=== PATIENT | female | born 1990 | race American Indian/Alaskan Native ===

== ENCOUNTER 2019-05-04 03:37 | Emergency (ER) | payer MEDICAID ==
[2019-05-04 04:57] LABS: Bacteria,Urine 1+ /HPF (Negative); Bilirubin,Urine NEG (Negative); Blood,Urine LG (Negative); Color,Urine Yellow (Yellow); Mucus,Urine 3+ /HPF
[2019-05-04 05:05] LABS: HCG Qualitative,Urine Negative (Negative)
[2019-05-04 05:58] VITALS: BP 106/74
[2019-05-04] MEDS ORDERED: LEVAQUIN PO STA (06:17)
--- NOTE | 2019-05-04 06:26 | Emergency Department Report ---
ED Female HPI - General Chief complaint: Back Pain/Injury Stated complaint: LOWER RT BACK PAIN Time Seen by Provider: 05/04/19 06:17 Source: patient Mode of arrival: Ambulatory Limitations: No Limitations - History of Present Illness MD Complaint: dysuria (and flank pain) -: Gradual, Sudden Radiation: R flank Severity: mild Quality: sharp, dull Consistency: constant Improves with: none Worsens with: urination Are you Now?: No Associated Symptoms: dysuria. denies: vaginal discharge, vaginal bleeding, abdominal pain, fever/chills, headaches, loss of appetite, rash, seizure, shortness of breath, syncope, weakness - Related Data Sexually active: No Previous Rx's Medication Instructions Recorded Last Taken Type Famotidine [Pepcid] 20 mg PO BID #40 tablet 09/06/15 Unknown Rx Potassium Chloride [K-Dur] 20 meq PO QDAY #3 tablet 09/06/15 Unknown Rx Vit-Fe Fumar-FA [ 1 tab PO QDAY #90 tablet 09/06/15 Unknown Rx Vitamin] Promethazine [Phenergan TAB] 25 mg PO Q6HR PRN #40 tab 09/06/15 Unknown Rx metroNIDAZOLE 0.75%(NF) [Metrogel 1 applicatio TP QHS #5 tube 09/06/15 Unknown Rx 0.75% TOPICAL] Ciprofloxacin HCl [Ciprofloxacin 500 mg PO Q12HR #28 tab 05/04/19 Unknown Rx TAB] Phenazopyridine [Pyridium] 200 mg PO BID PRN #10 tab 05/04/19 Unknown Rx Allergies Allergy/AdvReac Type Severity Reaction Status Date / Time No Known Allergies Allergy Unverified 07/20/13 08:25 ED Review of Systems ROS: Stated complaint: LOWER RT BACK PAIN Other details as noted in HPI Constitutional: denies: chills, fever Eyes: denies: eye pain, eye discharge, vision change ENT: denies: ear pain, throat pain Respiratory: denies: cough, shortness of breath, wheezing Cardiovascular: denies: chest pain, palpitations Endocrine: no symptoms reported Gastrointestinal: denies: abdominal pain, nausea, diarrhea Genitourinary: dysuria. denies: urgency, discharge, abnormal menses, dyspareunia Musculoskeletal: denies: back pain, joint swelling, arthralgia Skin: denies: rash, lesions Neurological: denies: headache, weakness, paresthesias Psychiatric: denies: anxiety, depression Hematological/Lymphatic: denies: easy bleeding, easy bruising ED Past Medical Hx - Past Medical History Previous Medical History?: Yes Hx Hypertension: No Hx Congestive Heart Failure: No Hx Diabetes: No Hx Deep Vein Thrombosis: No Hx Renal Disease: No Hx Sickle Cell Disease: No Hx Seizures: No Hx Asthma: No Hx COPD: No Hx HIV: No - Surgical History Past Surgical History?: Yes Additional Surgical History: x2, Left tubal ligation - Social History Smoking Status: Current Every Day Smoker Substance Use Type: None - Medications Home Medications: Home Medications Medication Instructions Recorded Confirmed Last Taken Type Famotidine [Pepcid] 20 mg PO BID #40 tablet 09/06/15 Unknown Rx Potassium Chloride [K-Dur] 20 meq PO QDAY #3 tablet 09/06/15 Unknown Rx Vit-Fe Fumar-FA [ 1 tab PO QDAY #90 tablet 09/06/15 Unknown Rx Vitamin] Promethazine [Phenergan TAB] 25 mg PO Q6HR PRN #40 tab 09/06/15 Unknown Rx metroNIDAZOLE 0.75%(NF) [Metrogel 1 applicatio TP QHS #5 tube 09/06/15 Unknown Rx 0.75% TOPICAL] Ciprofloxacin HCl [Ciprofloxacin 500 mg PO Q12HR #28 tab 05/04/19 Unknown Rx TAB] Phenazopyridine [Pyridium] 200 mg PO BID PRN #10 tab 05/04/19 Unknown Rx ED Physical Exam - General Limitations: No Limitations General appearance: alert, in no apparent distress - Head Head exam: Present: atraumatic, normocephalic, normal inspection - Eye Eye exam: Present: normal appearance, PERRL, EOMI. Absent: scleral icterus, conjunctival injection, periorbital swelling, periorbital tenderness Pupils: Present: normal accommodation - ENT ENT exam: Present: normal exam, normal orophraynx, mucous membranes moist, TM's normal bilaterally - Neck Neck exam: Present: normal inspection, full ROM. Absent: meningismus, lymphadenopathy, thyromegaly - Respiratory Respiratory exam: Present: normal lung sounds bilaterally. Absent: respiratory distress, wheezes, rales, rhonchi, chest wall tenderness, accessory muscle use - Cardiovascular Cardiovascular Exam: Present: regular rate, normal rhythm. Absent: systolic murmur, diastolic murmur, rubs, gallop - GI/Abdominal GI/Abdominal exam: Present: soft, normal bowel sounds - Extremities Exam Extremities exam: Present: normal inspection, full ROM, normal capillary refill - Back Exam Back exam: Present: normal inspection, CVA tenderness (R). Absent: muscle spasm, paraspinal tenderness, vertebral tenderness - Neurological Exam Neurological exam: Present: alert, oriented X3, CN II-XII intact, normal gait - Psychiatric Psychiatric exam: Present: normal affect, normal mood. Absent: agitated, anxious, flat affect, manic - Skin Skin exam: Present: warm, dry, intact, normal color. Absent: rash, cyanosis, diaphoretic, petechiae, pallor, ecchymosis ED Course Vital Signs 05/04/19 05/04/19 03:44 05:55 Temperature 98.2 F 98.7 F Pulse Rate 109 H 107 H Respiratory 16 18 Rate Blood Pressure 124/72 Blood Pressure 106/74 [Right] O2 Sat by Pulse 97 99 Oximetry Critical care attestation.: If time is entered above; I have spent that time in minutes in the direct care of this critically ill patient, excluding procedure time. ED Disposition Clinical Impression: UTI (urinary tract infection) Disposition: - TO HOME OR SELFCARE Is pt being admited?: No Does the pt Need Aspirin: No Condition: Stable Instructions: Phenazopyridine (By mouth), Urinary Tract Infection in Women (ED) Referrals: YAS MORALES MD [Primary Care Provider] - 3-5 Days
== END 2019-05-04 06:55 | disposition home or self-care (01) ==
LOC: ED 03:37
DX: N39.0 Urinary tract infection, site not specified (principal); F17.200 Nicotine dependence, unspecified, uncomplicated; Z79.899 Other long term (current) drug therapy
CPT/HCPCS: 81001; 81025